=== PATIENT | female | born 1995 | race Caucasian/White ===

== ENCOUNTER 2016-07-08 23:08 | Emergency (ER) | payer OTHER ==
[~2016-07-08 23:08] MED LIST: ALPRAZOLAM1 M2 PO; AZITHROMYCIN250 M1 PO; CYCLOBENZAPRINE10 M1 PO; IBUPROFEN600 M1 PO; LOW-OGESTREL-21 EACH PO; PERCOCET 5-3251 EACH PO; PREDNISONE20 M1 PO; VIBRAMYCIN100 MG PO
--- NOTE | 2016-07-08 23:17 | ED PSYCHIATRIC COMPLAINT ---
History of Present Illness General Chief Complaint: Psychiatric Related Complaint Stated Complaint: ANXIETY Source: patient Exam Limitations: no limitations Vital Signs & Intake/Output Vital Signs & Intake/Output Vital Signs Date Time Temp Pulse Resp B/P B/P Pulse O2 O2 Flow FiO2 Mean Ox Delivery Rate 07/09 1004 98.0 100 20 128/68 98 Room Air 07/09 0752 97.0 105 15 127/59 99 Room Air Room Air 07/09 0613 98.4 94 18 98/51 98 Room Air 07/08 2318 97.7 108 20 117/74 98 ED Intake and Output 07/09 0000 07/08 1200 Intake Total Output Total Balance Patient 130 lb Weight Allergies Coded Allergies: Penicillins (SEVERE RASH ALL OVER BODY 06/23/15) Reconcile Medications Alprazolam 1 MG TABLET 1 TAB PO BIDP PRN ANXIETY (Reported) Dextroamphetamine/Amphetamine (Dextroamp-Amphet ER 20 MG Cap) 20 MG CAP.ER.24H 1 CAP PO QAM ADHD (Reported) Norgestrel-Ethinyl Estradiol (Rju-Rrocupdu-50 Tablet) 1 EACH TABLET 1 TAB PO DAILY CONTROL (Reported) Triage Note: PER EMS/PT HX OF SEVERE ANXIETY, CALLED SISTER AND WAS CALMING DOWN PT REPORTED THAT SHE IS TIRED OF LIVING IN CONSTANT FEAR AND ANXIETY. SISTER CALLED FATHER, WHO WENT OFF ON PT AND MADE EXASCERBATED THE ANXIETY. PT DENIES SI/HI AND DENIES DRUG USE OR ETOH USE. DENIES SI HI. LMP LAST WEEK. Triage Nurses Notes Reviewed? yes Onset: Gradual Duration: week(s):, waxing and waning Timing: recent history Severity: moderate Associated Symptoms: anxiety : No Patient currently breastfeeds: No HPI: 20yo woman h/o long-standing anxiety presents with worsening anxiety. Per the medics, "She told her sister, 'I'm just so tired of living in fear.'" There was concern by the family that she wanted to commit suicide. She notes, "I don't want to kill myself... I'm just always anxious... I take alprazolam three times a day and it doesn't work.. I can never sleep... I never want to leave the house." She denies drugs and alcohol. (ERIC CARDENAS,OPAL Fajardo) Past History Travel History Traveled to [place] past 21 day No Medical History Any Pertinent Medical History? 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 No (ERIC CARDENAS,OPAL Fajardo) Review of Systems Review of Systems Constitutional: Reports: no symptoms. EENTM: Reports: no symptoms. Respiratory: Reports: no symptoms. Cardiovascular: Reports: no symptoms. GI: Reports: no symptoms. Genitourinary: Reports: no symptoms. Musculoskeletal: Reports: no symptoms. Skin: Reports: no symptoms. Neurological/Psychological: Reports: no symptoms. Hematologic/Endocrine: Reports: no symptoms. Immunologic/Allergic: Reports: no symptoms. All Other Systems: Reviewed and Negative (ERIC CADRENAS,OPAL Fajardo) Physical Exam Physical Exam General Appearance: well developed/nourished, mild distress Head: atraumatic Eyes: Bilateral: normal appearance. Ears, Nose, Throat: normal ENT inspection Neck: normal inspection Neurological/Psychiatric: awake, agitated, alert, anxious, oriented x 3 Appearance/Memory/Insight: impaired insight Behavoir/Eye Contact/Speech: belligerent, good eye contact Thoughts/Hallucinations: no apparent hallucination Skin: intact SAD PERSONS SAD PERSONS Response Value Depression/Hopelessness? yes 2 Excessive Ethanol/Drug Use? yes 1 Rational Thinking Loss? yes 2 Single//? yes 1 Social Support? has support 0 Total 6 SAD PERSONS Done? yes (ERIC CARDENAS,OPAL Fajardo) Progress Differential Diagnosis: ANXIETY VS DEPRESSION VS ETOH VS DRUG ABUSE Plan of Care: Orders Procedure Date/time Status Regular Diet 07/09 B Active Continuous Observation Monitor 07/09 400 Active ED CRISIS PSYCH CONSULT 07/09 400 Active URINE DRUG SCREEN FOR ER ONLY 07/08 2316 Complete HUMAN BETA HCG SCREEN 07/08 2316 Complete ETHANOL 07/08 2316 Complete COMPREHENSIVE METABOLIC PANEL 07/08 2316 Complete CBC WITHOUT DIFFERENTIAL 07/08 2316 Complete Laboratory Tests 07/09/16 0748: Urine Opiates Screen < 100.00, Methadone Screen < 40, Barbiturate Screen < 60, Ur Phencyclidine Scrn < 6.00, Amphetamines Screen < 100, U Benzodiazepines Scrn > 800 H, Urine Cocaine Screen < 50, Urine Cannabis Screen 42.50 07/09/16 0000: Anion Gap 15, Estimated GFR > 60, BUN/Creatinine Ratio 17.1, Glucose 96, Calcium 9.0, Total Bilirubin 0.3, AST 18, ALT 24, Alkaline Phosphatase 40, Total Protein 6.8, Albumin 4.1, Globulin 2.7, Albumin/Globulin Ratio 1.5, Total Beta HCG NEGATIVE, CBC w Diff NO MAN DIFF REQ, RBC 4.19 L, MCV 89.6, MCH 29.5, RDW 13.1, MPV 8.5, Gran % 55.2, Lymphocytes % 39.2, Monocytes % 4.2, Eosinophils % 0.8, Basophils % 0.6, Absolute Granulocytes 4.3, Absolute Lymphocytes 3.1, Absolute Monocytes 0.3, Absolute Eosinophils 0.1, Absolute Basophils 0, PUBS MCHC 33.0, Serum Alcohol 121.0 07/09/2016 7:20 AM PATIENT SIGNED OUT TO ME BY DR REYES. PENDING CRISIS EVALUTAION/ DISPOSITION. 07/09/2016 11:05:47 AM Patient seen and evaluated by Shaila from crisis. Cleared for discharge home and follow up. (FAHAD JENKINS MD) Hand-Off Endorsed To: FAHAD JENKINS MD Endorsed Time: 0700 Pending: consult, labs (AWAITING URINE DRUG SCREEN) (OPAL REYES MD) Departure Departure Condition: Stable Clinical Impression Primary Impression: Anxiety Referrals: EDD MEREDITH MD (PCP/Family) Departure Forms: Customer Survey General Discharge Information (OPAL REYES MD) Departure Time of Disposition: 1106 Disposition: HOME OR SELF CARE Additional Instructions: follow up with the recommendations of the tin recovery worker continue your regular medications (FAHAD JENKINS MD) Customer Survey General Discharge Information (OPAL REYES MD) Departure Time of Disposition: 1106 Disposition: HOME OR SELF CARE Additional Instructions: follow up with the recommendations of the tin recovery worker continue your regular medications (FAHAD JENKINS MD)
[2016-07-08] MEDS ORDERED: ALPRAZOLAM1 M2 PO (23:20)
[2016-07-08] MEDS ORDERED: DEXTROAMP-AMPHE20 M1 PO (23:20)
[2016-07-09 00:27] LABS: ABSOLUTE BASOPHIL COUNT 0 /CUMM (0.0-0.2); ABSOLUTE EOSINOPHIL COUNT 0.1 /CUMM (0.0-0.7); ABSOLUTE GRANULOCYTE CT 4.3 /CUMM (1.4-6.5); ABSOLUTE LYMPH COUNT 3.1 /CUMM (1.2-3.4); ABSOLUTE MONOCYTE COUNT 0.3 /CUMM (0.10-0.60); BASOPHIL % 0.6 % (0.0-2.0); EOSINOPHIL % 0.8 % (0-5); HEMATOCRIT 37.6 % (37-47); MEAN CORPUSCULAR HGB 29.5 PG (27.0-31.0); MEAN CORPUSCULAR VOLUME 89.6 FL (81.0-99.0); MEAN PLATELET VOLUME 8.5 FL (7.4-10.4); PLATELET COUNT 260 /CUMM (130-400); RBC DISTRIBUTION WIDTH 13.1 % (11.5-14.5); RED BLOOD CELL CT 4.19 /CUMM (4.20-5.40); WHITE BLOOD CELL COUNT 7.8 /CUMM (4.8-10.8)
[2016-07-09 00:31] LABS: GRANULOCYTE % 55.2 % (42.2-75.2)
--- NOTE | 2016-07-09 09:57 | ED PSYCH CRISIS CONSULTATION ---
Crisis Consult Basic Assessment Date of Consult: 07/09/16 Responsible Person/Accompanied By: self Insurance Authorization: Insurance #1: Insurance name: GANESH ENRIQUEZ Phone number: Policy number: [id number] Group number: Authorization number: ED Provider: Patient's ED Provider: ERIC CARDENAS,RAMON Fajardo Primary Care Physician: Patient's PCP: EDD MEREDITH MD PCP's Current Psychiatrist: Dr. Connor Chief Complaint: Psychiatric Related Complaint Patient's Quote: "My sister took what I said the wrong way." Present Illness: Pt is a 20yo female brought to the ED on a PEER after her sister was concerned that she may be suicidal. Pt explains that she has been struggling with anxiety and panic attacks since childhood. Last night she has 2 panic attacks. During the 1st panic attack she called her Psychiatrist Dr. Rice who was able to calm her. During the 2nd panic attack pt called her sister who is an anxiety high school assistant football coach and lives in [place]. pt explains that she told Dr. Rice and her sister that her anxiety is overwhelming and she does not want to keep living with the anxiety. Pt explains what she meant by this statement was that she wishes the anxiety would go away, but her sister took it as a suicidal statement. Pt denies any SI currently or previously. She also denies any HI/SH or psychosis. Pt also told her sister that she was going to take a bath to calm herself down, but her sister thought this meant that she was going to try and drown herself. Pt is adamant that she never had any suicidal intentions and that he sister misunderstood and took it out of context. Pt reports ongoing anxiety with panic attacks, but says it has never made her want to kill herself, but she just wishes that anxiety would go away. Pt explains that she has difficulty sleeping and is sometimes afraid to leave the home due to her anxiety. Pt denies any hx of inpt tx. She does see Psychiatrist Dr Rice in [place] 1 time monthly and is prescribed xanax. She says she takes her medication as prescribed and does not abuse it. Pt says she is due to see Dr. Rice this week, but can't remember when. Pt denies any substance abuse. Pt admits to occasional social drinking and admits she had some drinks last night with some friends. Pt has a BAL of 121 at 00:00. Pt was educated about the dangers of drinking whil on benzo medications. Pt expresses that she wishes to be discharged to follow-up with Dr. Rice. Offered pt a referral to IOP and she declined. Also offered to refer pt to individual therapy and she declined stating that she would like to further discuss it with Dr. Rice. Asked pt's for her sister's number for collateral, but she informed that she does not have it with her. Pt was in agreement for her father and Dr. Rice to be contacted. [facility] spoke to pt's father Reynaldo Boss with whom she lives. He also explained that it was all a mis understanding and pt would never kill herself. She has been more anxious than usual as her Grandfather recently . He did not have her sister's number because it is her half sister and he is not the father. He is adamant that pt is not suicidal and would like her to return home. He informed that he or pt's other sister will come pick pt up. [facility] also spoke with Dr. rice . He explains that he knows pt well and he spoke to her last night. He expressed that she is safe to be discharged home and he would like her to call him to come see him today. He plans to speak with her about individual therapy as well. Pt was in agreement to call Dr. Rice to see him today as well as discuss therapy. Pt' father was also informed of the4 plan and says he will make sure she calls Dr. Rice today. Case reviewed with Dr. Pike of psychiatry who approved dispo plan. Patient's Address: [address] [place] [address] Other Phone Number: Who Do You Live With? Family Family/Informants Interviewed: Father and Dr. Rice Allergies - Coded Allergies: Penicillins (SEVERE RASH ALL OVER BODY 06/23/15) Current Medications - Scheduled Medications Dextroamphetamine/Amphetamine (Dextroamp-Amphet ER 20 MG Cap) 20 MG CAP.ER.24H 1 CAP PO QAM ADHD #30 (Reported) Entered as Reported by ROBERT LEE on 07/08/160 Norgestrel-Ethinyl Estradiol (Efq-Bjzzvlbm-76 Tablet) 1 EACH TABLET 1 TAB PO DAILY CONTROL #28 (Reported) Entered as Reported by PHILLIP OTT on 06/23/15 193 Scheduled PRN Medications Alprazolam 1 MG TABLET 1 TAB PO BIDP PRN ANXIETY #90 (Reported) Entered as Reported by ROBERT LEE on 07/08/162319 Laboratory Results: Laboratory Tests 07/09/16 0748: Urine Opiates Screen < 100.00, Methadone Screen < 40, Barbiturate Screen < 60, Ur Phencyclidine Scrn < 6.00, Amphetamines Screen < 100, U Benzodiazepines Scrn > 800 H, Urine Cocaine Screen < 50, Urine Cannabis Screen 42.50 07/09/16 0000: Anion Gap 15, Estimated GFR > 60, BUN/Creatinine Ratio 17.1, Glucose 96, Calcium 9.0, Total Bilirubin 0.3, AST 18, ALT 24, Alkaline Phosphatase 40, Total Protein 6.8, Albumin 4.1, Globulin 2.7, Albumin/Globulin Ratio 1.5, Total Beta HCG NEGATIVE, CBC w Diff NO MAN DIFF REQ, RBC 4.19 L, MCV 89.6, MCH 29.5, RDW 13.1, MPV 8.5, Gran % 55.2, Lymphocytes % 39.2, Monocytes % 4.2, Eosinophils % 0.8, Basophils % 0.6, Absolute Granulocytes 4.3, Absolute Lymphocytes 3.1, Absolute Monocytes 0.3, Absolute Eosinophils 0.1, Absolute Basophils 0, PUBS MCHC 33.0, Serum Alcohol 121.0 Past History Past Medical History Neurological: NONE EENT: NONE Cardiovascular: NONE Respiratory: NONE Gastrointestinal: NONE Hepatic: NONE Renal: NONE Musculoskeletal: NONE Psychiatric: anxiety Endocrine: NONE Blood Disorders: NONE Cancer(s): NONE 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 Past Surgical History Surgical History: non-contributory Psychosocial History Strengths/Capabilities: supportive family, engaged in ou pt tx Physical Limitations (Interventions): none reported Psychiatric Treatment History Psych Treatment Psychiatric Treatment Yes Inpatient Treatment No Outpatient Treatment Yes Location of Treatment Dr Krystal Archer Reason for Treatment Anxiety Dates of Treatment current Response to Treatment variable Diagnosis by History: Anxiety Substance Use/Abuse History Drug Use/Abuse Substances Used/Abused Yes Substance Used/Abused Alcohol First Use 19 Last Used last night How much used/taken once in awhile in social situations Route of use po Substance Abuse Treatment Substance Abuse Treatment Past Substance Abuse [place] No Inpatient Treatment No Outpatient Treatment No Current Mental Status Mental Status Orientation: Person, Place, Situation Affect: WNL Speech: WNL Neuro-vegetative: Sleep Disturbance Appearance Appearance- Dress/Hygiene: well groomed, good eye contact Behaviors Thought Process: WNL Thought Content: WNL Memory: WNL Insight: WNL SI/HI Risk Assessment Past Suicidal Ideation/Attempts No Current Suicidal Ideation/Att No Past Homicidal Ideation/Att: No Current Homicidal Ideation/Attempts No Degree of Intent: None Risk Factors: high anxiety/distress Lethality Ratin (mild) PTSD Checklist PTSD Done? patient declined ED Management Sitter: Yes Restraints: No DSM5/PS Stressors/Medical Prob Diagnosis' (DSM 5, Stressors, Medical): Anxiety F41.1 Current GAF: 45 Departure Disposition Psych Medical Clearance Date: 07/09/16 Medically Cleared at: 1000 Time Started: 1000 Time Ended: 1100 Psychiatrist Consulted: Ramon Pike MD Date Disposition Established: 07/09/16 Time Disposition Established: 1100 Plan for Disposition - Modality: Outpatient Facility: Patient to Arrange Rationale for Disposition: pt denies SI and is agreeable to out pt follow-up Referrals MASOUD CARDENAS,EDD Ibarra (PCP/Family)
[2016-07-09 10:04] VITALS: BP 128/68
== END 2016-07-09 11:05 ==
LOC: ERH 23:08
PROVIDERS: Pediatrics
DX: F41.9 Anxiety disorder, unspecified (principal)
CPT/HCPCS: 80307; G0463; G0480

== ENCOUNTER 2017-04-04 10:45 | Emergency (ER) | payer OTHER ==
[~2017-04-04] VITALS: Ht 160 cm; Wt 59.0 kg
[~2017-04-04 10:45] MED LIST changes: +DEXTROAMP-AMPHE20 M1 PO
--- NOTE | 2017-04-04 11:30 | ED GENERAL ADULT ---
History of Present Illness General Chief Complaint: General Adult Stated Complaint: "FEELING FAINT" Source: patient Exam Limitations: no limitations Vital Signs & Intake/Output Vital Signs & Intake/Output Vital Signs Date Time Temp Pulse Resp B/P B/P Pulse O2 O2 Flow FiO2 Mean Ox Delivery Rate 04/04 1244 98.1 84 16 131/71 100 Room Air 04/04 1227 84 131/71 04/04 1205 98 Room Air 04/04 1053 97.8 97 20 130/77 98 Room Air Allergies Coded Allergies: Penicillins (SEVERE RASH ALL OVER BODY 06/23/15) Reconcile Medications Alprazolam 1 MG TABLET 1 TAB PO BIDP PRN ANXIETY (Reported) Dextroamphetamine/Amphetamine (Adderall 15 MG Tablet) 15 MG TABLET 1 TAB PO DAILY MENTAL HEALTH (Reported) Norgestrel-Ethinyl Estradiol (Xmb-Cgnhbzgd-79 Tablet) 1 EACH TABLET 1 TAB PO DAILY CONTROL (Reported) Sertraline HCl 100 MG TABLET 2 TAB PO DAILY MENTAL HEALTH (Reported) Triage Note: WOKE UP YESTERDAY FEELING VERY LIGHTHEADED AND SHE FELT FAINT. STATES SHE ISN'T SLEEPING WELL D/T WORKING AND GOING TO SCHOOL. PT STATES SHE FELT LIKE SHE WAS GOING TO FAINT UPSTAIRS AND VERY ANXIOUS Triage Nurses Notes Reviewed? yes Onset: Gradual Duration: day(s): Timing: recent history Injury Environment: home Severity: moderate : No Patient currently breastfeeds: No HPI: 21yo female with hx of anxiety presents to ED complaining of frontal headache, palpatations, presyncope. Patient states that yesterday she woke up and was feeling as though she was going to faint, she is in bed all day yesterday. She came into work and was feeling very anxious and claustrophobic. Yesterday the patient went to her psychiatrist to discuss her anxiety however no medications were changes. Yesterday the patient reports mild blurry vision which has since resolved. Patient denies chest pain, dyspnea, recent fall or head trauma, abdominal pain, vomiting, fevers, chills. (Rosa M THOMPSON,Susu Renteria) Past History Travel History Traveled to [place] past 21 day No Medical History Any Pertinent Medical History? 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 No (Susu Mcpherson) Review of Systems Review of Systems Constitutional: Reports: see HPI. EENTM: Reports: see HPI. Respiratory: Reports: no symptoms. Cardiovascular: Reports: no symptoms. GI: Reports: no symptoms. Genitourinary: Reports: no symptoms. Musculoskeletal: Reports: no symptoms. Skin: Reports: no symptoms. Neurological/Psychological: Reports: see HPI. Hematologic/Endocrine: Reports: no symptoms. Immunologic/Allergic: Reports: no symptoms. All Other Systems: Reviewed and Negative (Susu Mcpherson) Physical Exam Physical Exam General Appearance: well developed/nourished, no apparent distress, alert, awake Head: atraumatic, normal appearance Eyes: Bilateral: normal appearance, PERRL, EOMI. Ears, Nose, Throat: normal pharynx, normal ENT inspection, hearing grossly normal Neck: normal inspection, supple, full range of motion Respiratory: normal breath sounds, no respiratory distress, lungs clear Cardiovascular: regular rate/rhythm Gastrointestinal: normal bowel sounds, soft, non-tender, no organomegaly Back: normal inspection, normal range of motion Extremities: normal inspection, normal range of motion Neurologic/Psych: awake, alert, oriented x 3, rum processing operator II-XII nml as tested Skin: intact, normal color, warm/dry Core Measures ACS in differential dx? No CVA/TIA Diagnosis: No Sepsis Present: No Sepsis Focused Exam Completed? No (Susu Mcpherson) Progress Differential Diagnoses I considered the following diagnoses in my evaluation of the patient: [Anxiety/ panic disorder, electrolyte abnormality, anemia, orthostatic hypertension, dehydration] Initial ED EKG: none (Susu Mcpherson) Plan of Care: Orders Procedure Date/time Status MISTAKE 04/04 1130 Active URINE 04/04 1130 Complete URINALYSIS 04/04 1130 Complete COMPREHENSIVE METABOLIC PANEL 04/04 1130 Complete CBC WITHOUT DIFFERENTIAL 04/04 1130 Complete Laboratory Tests 04/04/17 1205: Urine Color YEL, Urine Clarity HAZY H, Urine pH 6.0, Ur Specific Magdalena 1.025, Urine Protein NEG, Urine Ketones NEG, Urine Nitrite NEG, Urine Bilirubin NEG, Urine Urobilinogen 0.2, Ur Leukocyte Esterase SMALL H, Ur Microscopic SEDIMENT EXAMINED, Urine RBC 25-50 H, Urine WBC 15-25 H, Ur Epithelial Cells MANY H, Urine Bacteria MANY H, Urine Mucus FEW, Urine Hemoglobin MOD H, Urine Glucose NEG, Urine Test NEGATIVE 04/04/17 1150: Anion Gap 12, Estimated GFR > 60, BUN/Creatinine Ratio 14.4, Glucose 91, Calcium 9.7, Total Bilirubin 0.3, AST 18, ALT 11, Alkaline Phosphatase 37, Total Protein 6.8, Albumin 4.2, Globulin 2.6, Albumin/Globulin Ratio 1.6, CBC w Diff NO MAN DIFF REQ, RBC 4.22, MCV 89.3, MCH 29.7, MCHC 33.3, RDW 12.8, MPV 8.7, Gran % 59.7, Lymphocytes % 33.4, Monocytes % 5.4, Eosinophils % 1.3, Basophils % 0.2, Absolute Granulocytes 4.7, Absolute Lymphocytes 2.6, Absolute Monocytes 0.4, Absolute Eosinophils 0.1, Absolute Basophils 0 Visual acuity 20/25 OU Orthostatic vital signs are negative. Patient's blood work is within normal limits, no acute abnormality. Patient was given her home dose of anxiety medication here in the emergency department. It was recommended the patient relax today and follow-up with her psychiatrist next week. Patient states she has the weekend off and has time to relax and rest. Patient ambulating here in the emergency Department without difficulty. She is neurologically intact without focal neurologic deficit. Patient no acute distress, stable vital signs , nontoxic-appearing. The patient agrees with plan of care. The patient was discussed with Dr. Gamez who agrees with this plan. (Rosa M THOMPSON,Susu Renteria) (Vera CARDENAS,Charlie Thomason) Departure Departure Disposition: HOME OR SELF CARE Condition: Stable Clinical Impression Primary Impression: Pre-syncope Secondary Impressions: Anxiety Referrals: Brody CARDENAS,Jorje Ibarra (PCP/Family) Additional Instructions: As discussed, follow-up with your specialist next week. Increase her fluids and rest. Try to do stress for activities today to help decompress from your stressful week. Return with any worsening symptoms or concerns. Please note that there might be incidental findings in your evaluation that are unrelated to the current emergency department visit. Please notify your primary care doctor about this emergency department visit in order to obtain and review all of the testing performed so that these incidental findings can be monitored as needed. If you had an x-ray performed, please understand that some fractures may not be seen on the initial set of x-rays. If your symptoms persist you might need a repeat set of x-rays to check for such a fracture. If you had a laceration evaluated, please understand that foreign bodies such as glass or wood may not be visible to the naked eye or on plain x-rays. If the wound becomes red, swollen, increasingly more painful or if there is any drainage from the wound, please have it reevaluated by a physician for the possibility of a retained foreign body. If you're unable to follow up as outlined in the discharge instructions please return to the emergency department. Thank you for choosing the [facility] Emergency Department for your care. It was a pleasure to serve you today. Departure Forms: Customer Survey General Discharge Information (Susu Mcpherson) PA/RANGE FEEDER Co-Sign Statement Statement: ED Attending supervision documentation- [] I saw and evaluated the patient. I have also reviewed all the pertinent lab results and diagnostic results. I agree with the findings and the plan of care as documented in the PA's/RANGE FEEDER's documentation. [X] I have reviewed the ED Record and agree with the PA's/RANGE FEEDER's documentation. [] Additions or exceptions (if any) to the PAs/RANGE FEEDER's note and plan are summarized below: [] (Vera CARDENAS,Charlie Thomason) Critical Care Note Critical Care Note Critical Care Time: non-applicable (Susu Mcpherson)
[2017-04-04 12:03] LABS: ABSOLUTE BASOPHIL COUNT 0 /CUMM (0.0-0.2); ABSOLUTE EOSINOPHIL COUNT 0.1 /CUMM (0.0-0.7); ABSOLUTE GRANULOCYTE CT 4.7 /CUMM (1.4-6.5); ABSOLUTE LYMPH COUNT 2.6 /CUMM (1.2-3.4); ABSOLUTE MONOCYTE COUNT 0.4 /CUMM (0.10-0.60); BASOPHIL % 0.2 % (0.0-2.0); EOSINOPHIL % 1.3 % (0-5); GRANULOCYTE % 59.7 % (42.2-75.2); HEMATOCRIT 37.7 % (37-47); MEAN CORPUSCULAR HGB 29.7 PG (27.0-31.0); MEAN CORPUSCULAR HGB CONC 33.3 G/DL (33.0-37.0); MEAN CORPUSCULAR VOLUME 89.3 FL (81.0-99.0); MEAN PLATELET VOLUME 8.7 FL (7.4-10.4); PLATELET COUNT 279 /CUMM (130-400); RBC DISTRIBUTION WIDTH 12.8 % (11.5-14.5); RED BLOOD CELL CT 4.22 /CUMM (4.20-5.40); WHITE BLOOD CELL COUNT 7.9 /CUMM (4.8-10.8)
[2017-04-04] MEDS ORDERED: ADDERALL 15 MG15 MG PO (12:08)
[2017-04-04] MEDS ORDERED: SERTRALINE HCL100 MG PO (12:08)
[2017-04-04 12:44] VITALS: BP 131/71
== END 2017-04-04 13:29 ==
LOC: ERH 10:45
PROVIDERS: Physician Assistant
DX: R55 Syncope and collapse (principal); F41.9 Anxiety disorder, unspecified
CPT/HCPCS: 81001; 81025